=== PATIENT | male | born 1960 | race Caucasian/White ===

== ENCOUNTER 2017-10-27 11:26 | Observation (INO) | payer BC ==
[2017-10-26 08:41] LABS: BASOPHILS % 0.6 % (0.0-1.0); EOSINOPHILS # (AUTO) 0.2 (0.0-0.4); EOSINOPHILS % 3.5 % (0.0-6.0); HEMATOCRIT 44.2 % (38.2-49.6); HEMOGLOBIN 15.1 g/dL (14.0-18.0); LYMPHOCYTES # (AUTO) 2.5 (1.0-3.2); LYMPHOCYTES % 35.3 % (18.0-39.1); MEAN CORPUSCULAR HEMOGLOBIN 29.8 pg (28-32); MEAN CORPUSCULAR HGB CONC 34.2 g/dL (31-35); MEAN CORPUSCULAR VOLUME 87.4 fL (81-99); MONOCYTES # (AUTO) 0.8 (0.2-0.8); MONOCYTES % 11.7 % (4.4-11.3); NEUTROPHILS # (AUTO) 3.4 (2.1-6.9); NEUTROPHILS % 48.8 % (38.7-80.0); PLATELET COUNT 250 x10e3/uL (140-360); RED BLOOD COUNT 5.06 x10e6/uL (4.3-5.7); RED CELL DISTRIBUTION WIDTH 13.1 % (11.7-14.4)
[2017-10-26 08:53] LABS: INR 0.9; PROTHROMBIN TIME 11.4 seconds (11.9-14.5)
[2017-10-26 09:01] LABS: ALANINE AMINOTRANSFERASE 34 IU/L (0-55); ALBUMIN 3.7 g/dL (3.5-5.0); ALBUMIN/GLOBULIN RATIO 1.2 (0.8-2.0); ALKALINE PHOSPHATASE 53 IU/L (40-150); ANION GAP 11.3 mmol/L (8-16); BLOOD UREA NITROGEN 17 mg/dL (7-26); BUN/CREATININE RATIO 16 (6-25); CALCIUM 9.4 mg/dL (8.4-10.2); CARBON DIOXIDE 28 mmol/L (22-29); CHLORIDE 107 mmol/L (98-107); CHOL/HDL RATIO 3.7 (3.9-4.7); CHOLESTEROL 147 MD/DL (0-199); CREATININE, SERUM 1.06 mg/dL (0.72-1.25); EST GLOMERULAR FILTRATION RATE > 60 ML/MIN (60-); GLUCOSE 162 mg/dL (74-118); HDL CHOLESTEROL 40 MG/DL (40-60); LDL CHOLESTEROL 91 MG/DL (60-130); POTASSIUM 4.3 mmol/L (3.5-5.1); SODIUM 142 mmol/L (136-145); TRIGLYCERIDES 78 MG/DL (0-149)
[~2017-10-27] VITALS: Ht 182.9 cm; Wt 103.4 kg
[~2017-10-27 11:26] MED LIST: ASPIR 8181 MG; BIOTIN800 MCG; COQ-10100 MG; CRESTOR10 MG; FISH OIL OMEGA1 EACH PO; GLIMEPIRIDE2 MG PO; LOSARTAN POTASS50 MG; METFORMIN HCL500 MG PO; MULTIVITAMINS1 EAC7
[2017-10-27 11:50] VITALS: BP 146/75
[2017-10-27] MEDS ORDERED: VERAPAMIL HCL 2.5 MG/ML 2 ML VIAL ONE (12:34)
[2017-10-27] MEDS ORDERED: SODIUM CHLORIDE 0.9% 1000ML 1,000 ML ONE ×2 (12:35→13:30)
[2017-10-27] MEDS ORDERED: HEPARIN SOD/SOD CHLORIDE 2,000 ML ONE (12:35)
[2017-10-27] MEDS ORDERED: IOPAMIDOL 370 MG/ML 200 ML INFUS..BTL INJ ONE ×2 (12:35→13:28)
[2017-10-27] MEDS ORDERED: LIDOCAINE HCL 2% LOCAL 20 ML VIAL ONE (12:35)
[2017-10-27] MEDS ORDERED: FENTANYL CITRATE/PF 100MCG/2 ML INJ ONE ×2 (12:35→13:32)
[2017-10-27] MEDS ORDERED: MIDAZOLAM HCL 2 MG/2 ML VIAL ONE ×3 (12:35→13:32)
[2017-10-27] MEDS ORDERED: BIVALIRUDIN 250 MG/VIAL IV ONE (13:13)
[2017-10-27] MEDS ORDERED: SODIUM CHLORIDE 0.9% 50ML 50 ML ONE (13:13)
[2017-10-27] MEDS ORDERED: ATROPINE SULFATE 0.1 MG/ML 10ML SYR ONE (13:21)
[2017-10-27] MEDS ORDERED: PRASUGREL 10 MG TAB ONE (13:41)
[2017-10-27] MEDS ORDERED: ASPIRIN 325 MG TAB ONE (13:42)
[2017-10-27 21:55] VITALS: BP 134/72
[2017-10-27 22:46] VITALS: BP 134/72
[2017-10-28] VITALS: BP 130/70
[2017-10-28] MEDS ORDERED: HYDROCODONE 7.5MG/IBUPROFEN 200MG TAB PO PRN (00:45)
[2017-10-28 04:00] VITALS: BP 125/69
[2017-10-28 06:24] LABS: BASOPHILS % 0.6 % (0.0-1.0); EOSINOPHILS # (AUTO) 0.3 (0.0-0.4); EOSINOPHILS % 3.5 % (0.0-6.0); HEMATOCRIT 41.4 % (38.2-49.6); HEMOGLOBIN 14.1 g/dL (14.0-18.0); LYMPHOCYTES # (AUTO) 2.1 (1.0-3.2); LYMPHOCYTES % 29.3 % (18.0-39.1); MEAN CORPUSCULAR HEMOGLOBIN 29.4 pg (28-32); MEAN CORPUSCULAR HGB CONC 34.1 g/dL (31-35); MEAN CORPUSCULAR VOLUME 86.4 fL (81-99); MONOCYTES # (AUTO) 0.7 (0.2-0.8); MONOCYTES % 9.3 % (4.4-11.3); NEUTROPHILS % 57.2 % (38.7-80.0); PLATELET COUNT 242 x10e3/uL (140-360); RED BLOOD COUNT 4.79 x10e6/uL (4.3-5.7); RED CELL DISTRIBUTION WIDTH 12.8 % (11.7-14.4)
[2017-10-28 06:51] LABS: ANION GAP 10.2 mmol/L (8-16); BLOOD UREA NITROGEN 14 mg/dL (7-26); BUN/CREATININE RATIO 16 (6-25); CALCIUM 8.5 mg/dL (8.4-10.2); CARBON DIOXIDE 26 mmol/L (22-29); CHLORIDE 107 mmol/L (98-107); CREATININE, SERUM 0.87 mg/dL (0.72-1.25); EST GLOMERULAR FILTRATION RATE > 60 ML/MIN (60-); GLUCOSE 119 mg/dL (74-118); POTASSIUM 4.2 mmol/L (3.5-5.1); SODIUM 139 mmol/L (136-145)
[2017-10-28 08:12] VITALS: BP 131/66
[2017-10-28] MEDS ORDERED: EFFIENT10 MG PO (08:40)
[2017-10-28] MEDS ORDERED: TOPROL XL25 MG PO (08:41)
[2017-10-28] MEDS ORDERED: NON-FORMULARY MEDICATION (Omega-3/Dha/Epa/Fish Oil (Fish Oil Omega-3 Softgel) 1 TAB) PO SCH ×2 (09:00)
[2017-10-28] MEDS ORDERED: METFORMIN HCL 500 MG TAB PO SCH (09:00)
[2017-10-28] MEDS ORDERED: GLIMEPIRIDE 2 MG TAB PO SCH (09:00)
[2017-10-28] MEDS ORDERED: MULTIVITAMINS/MINERALS TAB PO SCH (09:00)
[2017-10-28] MEDS ORDERED: ASPIRIN 81 MG CHEW TAB PO SCH (09:00)
[2017-10-28] MEDS ORDERED: SIMVASTATIN 40 MG TAB PO SCH (09:00)
--- NOTE | 2018-01-09 12:29 | Operative Report ---
DATE OF PROCEDURE: October 27, 2017 INDICATIONS: Coronary artery disease. Unstable angina. PROCEDURES PERFORMED 1. Left heart catheterization, selective coronary angiography. 2. Percutaneous transluminal coronary angioplasty and drug-eluting stent placement to the proximal right coronary artery. 3. Deployment right wrist transradial band. COMPLICATIONS: None. RECOMMENDATIONS: Dual antiplatelet therapy for life. Access was obtained in the right radial artery using ultrasound guidance. A 5-Surinamese sheath was placed. Left coronary system had mild disease of less than 10% to 20% luminal stenosis. Right coronary artery is occluded in its proximal portion. LV ejection fraction is 60%. A decision was made to intervene on the right coronary artery. The right coronary artery was cannulated using a JR4, 6-Surinamese guiding catheter. Patient received intravenous heparin for anticoagulation. Using a combination of a Whisper wire, the chronic total occlusion was crossed. The wire was exchanged to a [place] wire. Serial dilatation with a 1.5-mm balloon following which 2 overlapping 2.75 x 38 and 3.0 x 16 mm [place] [employer] Synergy stents were deployed at 14 to 18 atmospheres. Excellent end result and CHARLI-3 flow. No complications. Less than 10% stenosis. Patient was discharged home the same day. Job#: [id number]
== END 2017-10-28 08:58 | disposition home or self-care (01) ==
LOC: CATH LAB 11:26 → IMCU 19:01
PROVIDERS: ADMIT Internal Medicine Interventional Cardiology; ATTEND Internal Medicine Interventional Cardiology
DX: I25.110 Atherosclerotic heart disease of native coronary artery with unstable angina pectoris (principal); I25.82 Chronic total occlusion of coronary artery; R03.0 Elevated blood-pressure reading, without diagnosis of hypertension; E78.00 Pure hypercholesterolemia, unspecified; E11.9 Type 2 diabetes mellitus without complications; Z01.812 Encounter for preprocedural laboratory examination; Z79.84 Long term (current) use of oral hypoglycemic drugs; Z68.32 Body mass index [BMI] 32.0-32.9, adult; Z82.49 Family history of ischemic heart disease and other diseases of the circulatory system; Z79.82 Long term (current) use of aspirin
CPT/HCPCS: 36415 ×3; 80048; 80053; 80061; 82948; 85025 ×2; 85610; 92943; C1874 ×2; C1887; G0378 ×2; J0583; J2001; J2250; J7030; Q9967; 36140; 77002; 92920; 93452; 93458; C9600

== ENCOUNTER → 2019-04-02 | Day surgery (SDC) | payer BC ==
[2019-03-29 12:37] LABS: BASOPHILS # (AUTO) 0.1 (0.0-0.1); BASOPHILS % 0.6 % (0.0-1.0); EOSINOPHILS # (AUTO) 0.1 (0.0-0.4); EOSINOPHILS % 1.3 % (0.0-6.0); HEMATOCRIT 44.4 % (38.2-49.6); HEMOGLOBIN 15.3 g/dL (14.0-18.0); LYMPHOCYTES # (AUTO) 2.8 (1.0-3.2); LYMPHOCYTES % 31.1 % (18.0-39.1); MEAN CORPUSCULAR HEMOGLOBIN 29.9 pg (28-32); MEAN CORPUSCULAR HGB CONC 34.5 g/dL (31-35); MEAN CORPUSCULAR VOLUME 86.7 fL (81-99); MONOCYTES # (AUTO) 0.9 (0.2-0.8); MONOCYTES % 9.8 % (4.4-11.3); NEUTROPHILS % 56.3 % (38.7-80.0); PLATELET COUNT 306 x10e3/uL (140-360); RED BLOOD COUNT 5.12 x10e6/uL (4.3-5.7)
[2019-03-29 13:02] LABS: ALANINE AMINOTRANSFERASE 41 IU/L (0-55); ALBUMIN 4.1 g/dL (3.5-5.0); ALBUMIN/GLOBULIN RATIO 1.3 (0.8-2.0); ALKALINE PHOSPHATASE 59 IU/L (40-150); ANION GAP 13.5 mmol/L (8-16); BLOOD UREA NITROGEN 19 mg/dL (7-26); BUN/CREATININE RATIO 17 (6-25); CALCIUM 9.8 mg/dL (8.4-10.2); CARBON DIOXIDE 28 mmol/L (22-29); CHLORIDE 100 mmol/L (98-107); CREATININE, SERUM 1.11 mg/dL (0.72-1.25); EST GLOMERULAR FILTRATION RATE > 60 ML/MIN (60-); GLUCOSE 246 mg/dL (74-118); POTASSIUM 4.5 mmol/L (3.5-5.1); SODIUM 137 mmol/L (136-145)
[2019-04-02] VITALS (13 sets, daily range): BP systolic 115–145; BP diastolic 68–104
[~2019-04-02] VITALS: Ht 182.9 cm; Wt 102.1 kg
[~2019-04-02] MED LIST changes: +ALLEGRA ALLERG180 MG PO; +ALPRAZOLAM 0.5 MG TAB ONE; -ASPIR 8181 MG; +ASPIR 8181 MG PO; +ASPIRIN 325 MG TAB ONE; +BIVALRIUDIN 250 MG/VIAL VIAL IV ONE; +CENTRUM SILVER1 EAC3 PO; -COQ-10100 MG; +COQ-10100 MG PO; -CRESTOR10 MG; +CRESTOR10 MG PO; +DIPHENHYDRAMINE HCL 25 MG CAP ONE; +EFFIENT10 MG PO; +FENTANYL CITRATE/PF 100MCG/2 ML INJ ONE; +FISH OIL 1,2001 EACH PO; +HEPARIN SOD (PORCINE) 1000 UNIT/ML 30ML ONE; +HEPARIN SOD/SOD CHLORIDE 2,000 ML ONE; +IOPAMIDOL 370 MG/ML 200 ML INFUS..BTL INJ ONE; +LIDOCAINE HCL 2% LOCAL 20 ML VIAL ONE; +LOSARTAN POTASS25 MG PO; +METFORMIN HCL500 M2 PO; +MIDAZOLAM HCL 2 MG/2 ML VIAL ONE; +PRASUGREL 10 MG TAB ONE; +RANEXA500 MG PO; +SODIUM CHLORIDE 0.9% 1000ML 1,000 ML ONE; +SODIUM CHLORIDE 0.9% 50ML 50 ML ONE; +TOPROL XL25 MG PO; +TRESIBA INSULIN SC; +VERAPAMIL HCL 2.5 MG/ML 2 ML VIAL ONE
--- NOTE | 2019-04-02 13:30 | NUR ---
[id number] Received report Rakan Frost.Identiferx2. Alert oriented and appropriate, PERRLA, respirations even and unlabored to room air. Pulses x4 extremities equal and strong. Pedal pulses PT/Dpx4 Cap fill brisk < 3 sec. Skin warm and dry integrity appears IV 20g to left iv site dry and intact.Angiomax infusing to follow 100cc/hr NS via pump. Presents healthy w/o s/s of infiltration or complaint. Abdomen soft and supple. pt offered toileting, denies need to urinate or defecate. No personal affects with patient. Family Neema Pt and family verbalizes understanding of POC. Will decrease air in radial band at 5pm No gross issues pain,pallor,pressure or dysrhythmia.Normal neuro vascular function,No hematoma or oozing to rt radial site. ds/rn
--- NOTE | 2019-04-02 17:00 | NUR ---
1700pm RADIAL Compression removal: Initial Cuff volume 10cc -2cc Removed No hematoma/bleeding noted with normal neurovascular function. Air removal completed. Notified stasis achieved and Dr Skylar jimenez to dc home now. Stasis achieved sterile 2x2,Tegederm, Coban dressing No hematoma, bleeding noted with normal neurovascular function. Wrist splint in place. Pt instructed on POC. Ds/Rn
--- NOTE | 2019-04-02 17:30 | NUR ---
1730 pt meets DC criteria. Rt radial access site assessed for s/s of complication and presence of hematoma. warm, dry, no discolor, and pulses present. IV removed from left jessica. Distal tip appears intact. VS WNL. Pt denies pain, sob, or need at this time. Family at XXXXX. Review of discharge paperwork and follow up instructions. verbalized understanding. Pt to wheelchair and transported to front of hospital. Transferred to private vehicle under own strength w/o incident with DC paperwork in hand. - ds/rn
--- NOTE | 2019-04-03 12:20 | Operative Report ---
DATE OF PROCEDURE: 04/02/2019 SURGEON: Roberto Cheng MD INDICATION: Coronary artery disease, abnormal stress test unstable angina. PROCEDURES PERFORMED: 1. Left heart catheterization, selective coronary angiography. 2. PTCA and stent placement to the mid circumflex artery. 3. Deployment of right wrist TR band. COMPLICATIONS: None. RECOMMENDATIONS: Medical therapy. DESCRIPTION OF PROCEDURE: Access obtained in the right radial artery, 6-Upper Sor[place] sheath was placed. Right coronary artery stents were widely patent. Left main 50% mild stenosis. Left anterior descending artery 50% proximal stenosis. Circumflex 95% stenosis. LV end-diastolic pressure of 12. A decision was made to intervene on the circumflex artery. The patient received Angiomax for anticoagulation. The left main was cannulated using an EBU 4.05-Upper Sorbian guiding catheter. Primary stent 2.75 x 15 mm Resolute [place] deployed at 14 atmospheres, post dilating the proximal portion of the 3 mm balloon at 22 atmospheres. Excellent end result, less than 10% residual stenosis, CHARLI-3 flow. No complications. Right wrist guidewire and guide sheath removed. TR band applied. The patient discharged home same day. Roberto Cheng MD KSB/MODL /[id number]
== END | disposition home or self-care (01) ==
LOC: CATH LAB 09:33
PROVIDERS: ATTEND Internal Medicine Interventional Cardiology
DX: I25.118 Atherosclerotic heart disease of native coronary artery with other forms of angina pectoris (principal); E78.00 Pure hypercholesterolemia, unspecified; E11.9 Type 2 diabetes mellitus without complications; Z01.812 Encounter for preprocedural laboratory examination; Z79.82 Long term (current) use of aspirin; Z79.84 Long term (current) use of oral hypoglycemic drugs; Z79.4 Long term (current) use of insulin; Z68.32 Body mass index [BMI] 32.0-32.9, adult; Z82.49 Family history of ischemic heart disease and other diseases of the circulatory system
CPT/HCPCS: 36415; 80053; 85025; 92928; 93458; C1725; C1769; C1874; C1887; J0583; J1644; J2001; J2250; J3010; J7030; Q9967

== ENCOUNTER 2025-04-14 12:32 | Emergency (ER) | payer MEDICARE ==
[~2025-04-14] VITALS: Ht 182.9 cm; Wt 90.7 kg
[~2025-04-14 12:32] MED LIST changes: -ALPRAZOLAM 0.5 MG TAB ONE; -ASPIRIN 325 MG TAB ONE; -BIVALRIUDIN 250 MG/VIAL VIAL IV ONE; -DIPHENHYDRAMINE HCL 25 MG CAP ONE; -FENTANYL CITRATE/PF 100MCG/2 ML INJ ONE; -HEPARIN SOD (PORCINE) 1000 UNIT/ML 30ML ONE; -HEPARIN SOD/SOD CHLORIDE 2,000 ML ONE; -IOPAMIDOL 370 MG/ML 200 ML INFUS..BTL INJ ONE; -LIDOCAINE HCL 2% LOCAL 20 ML VIAL ONE; -MIDAZOLAM HCL 2 MG/2 ML VIAL ONE; -PRASUGREL 10 MG TAB ONE; -SODIUM CHLORIDE 0.9% 1000ML 1,000 ML ONE; -SODIUM CHLORIDE 0.9% 50ML 50 ML ONE; -VERAPAMIL HCL 2.5 MG/ML 2 ML VIAL ONE
[2025-04-14 12:46] VITALS: TEMP 98.3
[2025-04-14 13:30] LABS: BASOPHILS % 0.4 % (0.0-1.0); EOSINOPHILS % 2.2 % (0.0-6.0); LYMPHOCYTES % 19.7 % (18.0-39.1); MONOCYTES % 10.1 % (4.4-11.3); NEUTROPHILS % 67.3 % (38.7-80.0); RED CELL DISTRIBUTION WIDTH 13.2 % (11.7-14.4)
[2025-04-14 13:36] LABS: LEUKOCYTE ESTERASE ,URINE NEGATIVE (NEGATIVE); PROTEIN,URINE DIPSTICK 2+ (NEGATIVE); URINE UROBILINOGEN 0.2 mg/dL (0.2 - 1)
[2025-04-14 13:38] LABS: INR 0.87
[2025-04-14 13:47] LABS: EST GLOMERULAR FILTRATION RATE 68.0 ML/MIN (>=60)
[2025-04-14] MEDS: SODIUM CHLORIDE 0.9% 1000ML 1,000 ML IV STA (14:10)
[2025-04-14 14:12] LABS: EPITHELIAL CELLS,URINE FEW /LPF; WBC,URINE (MAN) 0-5 /HPF (0-5)
[2025-04-14 14:13] LABS: HYALINE CASTS 0-1 (0-1)
[2025-04-14] MEDS: KETOROLAC TROMETHAMINE 30 MG/ML VIAL IV STA (14:54)
[2025-04-14] MEDS: ONDANSETRON HCL INJ 2MG/ML 2ML 2 MG/ML VIAL IV STA (14:54)
[2025-04-14] MEDS: Morphine 4mg INJECTION 4 MG/ML INJ IV STA (14:54)
[2025-04-14 14:55] VITALS: PULSE 75; RESP 18; O2SAT 100
[2025-04-14] MEDS ORDERED: FLOMAX0.4 MG PO (15:06)
[2025-04-14] MEDS ORDERED: ONDANSETRON ODT4 MG PO (15:06)
[2025-04-14] MEDS ORDERED: KETOROLAC TROME10 MG PO (15:06)
[2025-04-14] MEDS ORDERED: HYDROCODON-ACE1 EA11 PO (15:06)
== END 2025-04-14 15:24 | disposition home or self-care (01) ==
LOC: ER 13:04
DX: R10.9 Unspecified abdominal pain (principal); N20.0 Calculus of kidney; N28.1 Cyst of kidney, acquired; I70.8 Atherosclerosis of other arteries; R11.0 Nausea; I10 Essential (primary) hypertension
CPT/HCPCS: 36415; 74176; 80053; 81001; 85025; 85610; 85730; 87086; 99284; J1885; J2405; J7030